=== PATIENT | female | born 1985 | race African-American/Black ===

== ENCOUNTER 2017-04-23 19:29 | Emergency (ER) | payer OTHER ==
[~2017-04-23] VITALS: Ht 157.5 cm; Wt 58.0 kg
[2017-04-23 19:37] VITALS: BP 116/78; PULSE 87; RESP 20; TEMP 99.2; O2SAT 100
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
[2017-04-23] MEDS ORDERED: KETOROLAC TROMETHAMINE 60 MG/2 ML (IM) VIAL IM ONE (21:00)
[2017-04-23] MEDS ORDERED: ORPHENADRINE INJ 60 MG/2 ML AMP IM ONE (21:00)
[2017-04-23] MEDS ORDERED: ROBA500T PO (21:06)
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
== END 2017-04-23 21:14 | disposition home or self-care (01) ==
LOC: PHEFT 19:29
DX: S16.1XXA Strain of muscle, fascia and tendon at neck level, initial encounter (principal); S29.012A Strain of muscle and tendon of back wall of thorax, initial encounter; V43.52XA Car driver injured in collision with other type car in traffic accident, initial encounter; Y93.9 Activity, unspecified; Y92.9 Unspecified place or not applicable; Y99.9 Unspecified external cause status
CPT/HCPCS: 72072; 96372; 99284; J1885